=== PATIENT | female | born 1945 | race Caucasian/White ===

== ENCOUNTER 2017-08-07 14:02 | Outpatient (CLI) | payer MEDICARE | END 2017-08-07 14:03 | disposition home or self-care (01) | LOC: BICMAMMO 14:02 | PROVIDERS: ATTEND Internal Medicine | DX: Z12.31 Encounter for screening mammogram for malignant neoplasm of breast (principal) | CPT/HCPCS: 77063; 77067 ==

== ENCOUNTER 2018-02-12 11:02 | Emergency (ER) | payer MEDICARE ==
--- NOTE | 2018-02-12 12:14 | RAD ---
2 VIEWS CHEST: Date: 02/12/18 COMPARISON: 01/10/16. HISTORY: Intermittent chest pain. FINDINGS: No pneumothorax, pleural fluid, focal consolidation, or alveolar edema. Heart and mediastinal contour s unremarkable. IMPRESSION: No acute findings. POS: [facility]
[2018-02-12 13:04] LABS: #Eosinphils 0.1 thou/uL (0.0-0.7); #Lymphocytes 0.9 thou/uL (1.20-3.40); #Monocytes 0.5 thou/uL (0.11-0.59); %Basophils 0.3 % (0.0-1.0); %Eosinophils 0.6 % (0.0-10.0); %Monocytes 5.3 % (0.0-10.0); %Neutrophils 82.9 % (42.0-75.0); Hemoglobin 16.6 g/dL (12.0-16.0); Mean Corpuscular HGB CONC 34.1 g/dL (32.0-36.0); Mean Corpuscular Hemoglobin 30.3 pg (27.0-31.0); Mean Corpuscular Volume 89.1 fL (78.0-98.0); Mean Platelet Volume 6.5 fL (7.4-10.4); Platelet Count 202 thou/uL (130-400); RBC Distribution Width 12.7 % (11.5-14.5); Red Blood Cell (RBC) Count 5.48 mill/uL (4.20-5.40); White Blood Cell (WBC) Count 8.5 thou/uL (4.8-10.8)
[2018-02-12 13:20] LABS: ALT (SGPT) 18 U/L (8-55); AST (SGOT) 21 U/L (5-34); Albumin 4.6 g/dL (3.4-4.8); Alkaline Phosphatase 76 U/L (40-150); Anion Gap 9 mmol/L (10-20); BUN (Urea Nitrogen) 17 mg/dL (9.8-20.1); Bilirubin, Total 0.6 mg/dL (0.2-1.2); CK (CPK) 200 U/L (29-168); Calc. Creatinine Clearance 0 mL/min (70-130); Calcium 10.1 mg/dL (7.8-10.44); Carbon Dioxide 29 mmol/L (23-31); Chloride 105 mmol/L (98-107); Estimated GFR-MDRD 58; Globulin 2.7 g/dL (2.4-3.5); Glucose 119 mg/dL (83-110); Potassium 4.6 mmol/L (3.5-5.1); Protein, Total 7.3 g/dL (6.0-8.3); Sodium 138 mmol/L (136-145)
[2018-02-12 13:22] LABS: CKMB 5.5 ng/mL (0-6.6)
--- NOTE | 2018-02-14 13:54 | EKG ---
Test Reason : Blood Pressure : / mmHG Vent. Rate : 078 BPM Atrial Rate : 078 BPM P-R Int : 160 ms QRS Dur : 086 ms QT Int : 338 ms P-R-T Axes : 037 020 044 degrees QTc Int : 385 ms Normal sinus rhythm Normal ECG Confirmed by MARTIN TROTTER ([id number]), legal editor DEANNA BERMUDEZ ([id number] on 02/14/2018 1:54:21 PM Referred By: Confirmed By:MARTIN TROTTER
== END 2018-02-12 16:46 | disposition home or self-care (01) ==
LOC: ERS 11:02
DX: R07.89 Other chest pain (principal); E03.9 Hypothyroidism, unspecified; I10 Essential (primary) hypertension; Z79.82 Long term (current) use of aspirin; Z79.899 Other long term (current) drug therapy
CPT/HCPCS: 36415; 71046; 80053; 82550; 82553; 84484; 85025; 93005

== ENCOUNTER 2018-02-18 10:53 | Outpatient (CLI) | payer MEDICARE ==
--- NOTE | 2018-02-18 11:53 | RAD ---
CHEST TWO VIEWS: History: Left chest pain. Comparison: 02-12-18 FINDINGS: The cardiac silhouette and pulmonary vasculature are unremarkable. Mediastinum is midline. No conflue nt airspace consolidation, pneumothorax, or pleural fluid. IMPRESSION: No active cardiopulmonary abnormalities are demonstrated. POS: [facility]
== END 2018-02-18 10:54 | disposition home or self-care (01) ==
LOC: BICRAD 10:53
PROVIDERS: ATTEND Internal Medicine
DX: R07.89 Other chest pain (principal)
CPT/HCPCS: 71046

== ENCOUNTER 2018-07-07 14:05 | Outpatient (CLI) | payer MEDICARE ==
--- NOTE | 2018-07-07 14:26 | RAD ---
Exam: Cervical spine 3 views: HISTORY: Cervalgia, unspecified osteoarthritis. FINDINGS: Multilevel disc osteophytosis and facet arthrosis. Very mild anterolisthesis of C4 on C5. The tip of the odontoid and upper C1 are partially obscured on the AP open mouth view. No prevertebral soft tissue swelling. IMPRESSION: Disc osteophytosis and facet arthrosis with very mild anterolisthesis of C4 on C5. No significant acu te process.
== END 2018-07-07 14:06 | disposition home or self-care (01) ==
LOC: BICRAD 14:05
PROVIDERS: ATTEND Internal Medicine
DX: M54.2 Cervicalgia (principal); M19.90 Unspecified osteoarthritis, unspecified site; M47.812 Spondylosis without myelopathy or radiculopathy, cervical region; M43.12 Spondylolisthesis, cervical region
CPT/HCPCS: 72040

== ENCOUNTER 2018-07-22 09:41 | Outpatient (CLI) | payer MEDICARE ==
--- NOTE | 2018-07-22 10:47 | MRI ---
Exam: MRI CERVICAL SPINE WITHOUT CONTRAST: HISTORY: Neck pain. Pain behind ears.. COMPARISON: 09/14/2013 FINDINGS: Appropriate T1 marrow signal intensity of the cervical vertebra. Cervical spine vertebral body heigh t is maintained. No fracture. No significant STIR hyperintensity to suggest vertebral body edema or ligamentous injury. Visualized brain parenchyma, cervicomedullary junction, cervical cord and the upper thoracic cord hav e a normal size and signal intensity C2-C3: No significant central canal stenosis or neural foraminal narrowing C3-C4: No significant central canal stenosis. Stable left-sided facet hypertrophy with resultant mode rate left foraminal narrowing. Right neural foramen is patent. C4-C5: Broad-based discussed by complex abuts the thecal sac. No significant central canal stenosis. Neural foramina are patent C5-C6: No obvious discussed by complex with a right paracentral component. Mild central canal stenosi s. Mild bilateral neural foraminal narrowing due to uncovertebral hypertrophy. C6-C7: No significant central canal stenosis. Neural foramina are patent. C7-T1: No significant central canal stenosis. Neural foramina are patent IMPRESSION: Stable degenerative changes of the cervical spine. Greatest degree of central canal stenosis at C5-C6 where there is persistent mass effect upon the right aspect of the thecal sac and right hemicord. Transcribed Date/Time: 07/22/2018 11:11 AM
== END 2018-07-22 09:42 | disposition home or self-care (01) ==
LOC: BICMRI 09:41
PROVIDERS: ATTEND Internal Medicine
DX: M47.26 Other spondylosis with radiculopathy, lumbar region (principal); M54.2 Cervicalgia; M48.061 Spinal stenosis, lumbar region without neurogenic claudication; G95.9 Disease of spinal cord, unspecified
CPT/HCPCS: 72141

== ENCOUNTER 2018-08-13 12:20 | Outpatient (CLI) | payer MEDICARE ==
--- NOTE | 2018-08-13 13:27 | RAD ---
RIGHT HIP 2 VIEWS: Date: 08/13/18 HISTORY: Right hip pain. FINDINGS/IMPRESSION: Right hip joint arthrosis and degenerative change without fracture or dislocation. POS: [facility]
--- NOTE | 2018-08-13 14:53 | MMO ---
Bilateral MAMMO Bilat Screen [facility]. CLINICAL HISTORY: Patient is 73 years old and is seen for screening. The patient has no family history of breast cancer. The patient has no personal history of cancer. VIEWS: The views performed were: bilateral craniocaudal with tomosynthesis and bilateral mediolateral oblique with tomosynthesis. FILMS COMPARED: The present examination has been compared to prior imaging studies performed at [facility] on 07/29/2014, 07/31/2015, 08/01/2016 and 08/07/2017. MAMMOGRAM FINDINGS: There are scattered fibroglandular densities. There are stable benign appearing calcifications seen in both breasts. There are no suspicious masses, suspicious calcifications, or new areas of architectural distortion. IMPRESSION: THERE IS NO MAMMOGRAPHIC EVIDENCE OF MALIGNANCY. A ROUTINE FOLLOW-UP MAMMOGRAM IN 1 YEAR IS RECOMMENDED. THE RESULTS OF THIS EXAM WERE SENT TO THE PATIENT. ACR BI-RADS Category 2 - Benign finding MAMMOGRAPHY NOTE: 1. A negative mammogram report should not delay a biopsy if a dominant of clinically suspicious mass is present. 2. Approximately 10% to 15% of breast cancers are not detected by mammography. 3. Adenosis and dense breasts may obscure an underlying neoplasm.
== END 2018-08-13 12:21 | disposition home or self-care (01) ==
LOC: BICMAMMO 12:20
PROVIDERS: ATTEND Internal Medicine
DX: Z12.31 Encounter for screening mammogram for malignant neoplasm of breast (principal); M25.551 Pain in right hip
CPT/HCPCS: 77063; 77067

== ENCOUNTER 2018-09-21 16:07 | Outpatient (CLI) | payer MEDICARE ==
--- NOTE | 2018-09-21 16:23 | RAD ---
Cervical spine lateral views flexion and extension HISTORY: Neck pain. COMPARISON: 07/07/2018. FINDINGS: At the C4-5 level, there is 0.3 cm anterior listhesis upon flexion that reduces to 0.1 cm u manuela extension. At the C5-6 level, there is moderate disc space narrowing. 0.2 cm retrolisthesis develops upon extens ion. Cervicothoracic junction is intact. Moderate osteophytosis, most pronounced at the C5-6 level. No acute fracture or dislocation. IMPRESSION: Osseous degenerative changes of the cervical spine, including mild translational motion a s detailed above.
== END 2018-09-21 16:08 | disposition home or self-care (01) ==
LOC: TBSIIMAG 16:07
PROVIDERS: ATTEND Neurological Surgery
DX: M54.2 Cervicalgia (principal); M47.812 Spondylosis without myelopathy or radiculopathy, cervical region; M25.78 Osteophyte, vertebrae
CPT/HCPCS: 72040

== ENCOUNTER 2018-09-29 14:06 | Outpatient (CLI) | payer MEDICARE ==
--- NOTE | 2018-09-29 15:57 | MRI ---
MRI Brain W WO Con History: Spasm of hand Comparison: None. Findings: On the diffusion weighted imaging sequence there are no abnormal foci of diffusion restrict ion. This is confirmed on the ADC maps. On the susceptibility weighted sequence no abnormal foci of hemorrhage. No abnormal leptomeningeal or pachymeningeal enhancement. No intra-axial or extra-axial enhancing mas s. Ventricular size and extra-axial CSF spaces are normal. No significant microvascular ischemic changes . Normal volume of brain parenchyma. Dural venous sinuses are patent. Impression: Normal MRI of the brain.
== END 2018-09-29 14:07 | disposition home or self-care (01) ==
LOC: SCSMRI 14:06
PROVIDERS: ATTEND Neurological Surgery
DX: R25.2 Cramp and spasm (principal)
CPT/HCPCS: 70553; 82565

== ENCOUNTER 2019-08-18 13:11 | Outpatient (CLI) | payer MEDICARE ==
--- NOTE | 2019-08-18 14:11 | MMO ---
Bilateral MAMMO Bilat Screen [facility]. CLINICAL HISTORY: Patient is 74 years old and is seen for screening. The patient has no family history of breast cancer. The patient has no personal history of cancer. VIEWS: The views performed were: bilateral craniocaudal with tomosynthesis and bilateral mediolateral oblique with tomosynthesis. FILMS COMPARED: The present examination has been compared to prior imaging studies performed at [facility] on 07/31/2015, 08/01/2016, 08/07/2017 and 08/13/2018. This study has been interpreted with the assistance of computer-aided detection. MAMMOGRAM FINDINGS: There are scattered fibroglandular densities. There are vascular calcifications seen in the left breast. There are no suspicious masses, suspicious calcifications, or new areas of architectural distortion. IMPRESSION: A ROUTINE FOLLOW-UP MAMMOGRAM IN 1 YEAR IS RECOMMENDED. THE RESULTS OF THIS EXAM WERE SENT TO THE PATIENT. ACR BI-RADS Category 2 - Benign finding MAMMOGRAPHY NOTE: 1. A negative mammogram report should not delay a biopsy if a dominant of clinically suspicious mass is present. 2. Approximately 10% to 15% of breast cancers are not detected by mammography. 3. Adenosis and dense breasts may obscure an underlying neoplasm. Reported by: LOUIS CHUNG MD Electonically Signed: [id number]
== END 2019-08-18 13:12 | disposition home or self-care (01) ==
LOC: BICMAMMO 13:11
PROVIDERS: ATTEND Internal Medicine
DX: Z12.31 Encounter for screening mammogram for malignant neoplasm of breast (principal)
CPT/HCPCS: 77063; 77067

== ENCOUNTER 2020-01-06 08:53 | Emergency (ER) | payer MEDICARE ==
[2020-01-06] MEDS ORDERED: Proparacaine 0.5% Opth 15 ML BOT ONE (09:22)
== END 2020-01-06 10:30 | disposition home or self-care (01) ==
LOC: ERS 08:53
DX: H11.31 Conjunctival hemorrhage, right eye (principal); E03.9 Hypothyroidism, unspecified; I10 Essential (primary) hypertension; K21.9 Gastro-esophageal reflux disease without esophagitis; Z79.899 Other long term (current) drug therapy; Z79.82 Long term (current) use of aspirin
CPT/HCPCS: 99283

== ENCOUNTER 2020-03-13 07:50 | Outpatient (CLI) | payer MEDICARE ==
--- NOTE | 2020-03-13 09:39 | RAD ---
PA AND LATERAL CHEST: HISTORY: Dyspnea. COMPARISON: 02/18/2018 study. FINDINGS: Heart size is upper limits. The aorta is tortuous. The lungs appear clear of any focal infiltrative process. IMPRESSION: No active intrathoracic disease. Stable overall appearance to the chest. POS: [facility]
== END 2020-03-13 07:51 | disposition home or self-care (01) ==
LOC: BICRAD 07:50
PROVIDERS: ATTEND Internal Medicine Critical Care Medicine
DX: R06.00 Dyspnea, unspecified (principal)
CPT/HCPCS: 71046

== ENCOUNTER 2020-08-18 13:00 | Outpatient (CLI) | payer MEDICARE | END 2020-08-18 13:01 | disposition home or self-care (01) | LOC: BICMAMMO 13:00 | PROVIDERS: ATTEND Internal Medicine | DX: Z12.31 Encounter for screening mammogram for malignant neoplasm of breast (principal) | CPT/HCPCS: 77063; 77067 ==

== ENCOUNTER 2021-08-22 12:30 | Outpatient (CLI) | payer MEDICARE | END 2021-08-22 12:31 | disposition home or self-care (01) | LOC: BICMAMMO 12:30 | PROVIDERS: ATTEND Internal Medicine | DX: Z12.31 Encounter for screening mammogram for malignant neoplasm of breast (principal) | CPT/HCPCS: 77063; 77067 ==

== ENCOUNTER 2022-08-23 12:36 | Outpatient (CLI) | payer MEDICARE | END 2022-08-23 12:37 | disposition home or self-care (01) | LOC: BICMAMMO 12:36 | PROVIDERS: ATTEND Internal Medicine | DX: Z12.31 Encounter for screening mammogram for malignant neoplasm of breast (principal) | CPT/HCPCS: 77063; 77067 ==

== ENCOUNTER 2022-10-01 07:57 | Outpatient (CLI) | payer MEDICARE ==
[2022-10-01] MEDS ORDERED: Iopamidol 370 76% 100 ML VIAL ONE (09:26)
== END 2022-10-01 07:58 | disposition home or self-care (01) ==
LOC: BICCT 07:57
PROVIDERS: ATTEND Family Medicine
DX: R41.3 Other amnesia (principal)
CPT/HCPCS: 70470; Q9967

== ENCOUNTER 2022-12-16 10:53 | Outpatient (CLI) | payer MEDICARE ==
[2022-12-16] MEDS ORDERED: Magnevist 469MG/ML 20 ML VIAL ONE (14:50)
== END 2022-12-16 10:54 | disposition home or self-care (01) ==
LOC: MRI 10:53
PROVIDERS: ATTEND Psychiatry & Neurology Neurology
DX: R41.3 Other amnesia (principal)
CPT/HCPCS: 70553

== ENCOUNTER 2023-02-06 17:00 | Outpatient (CLI) | payer MEDICARE | END 2023-02-06 17:01 | disposition home or self-care (01) | LOC: SLEEPLAB 17:00 | PROVIDERS: ATTEND Family Medicine | DX: G47.33 Obstructive sleep apnea (adult) (pediatric) (principal); R53.83 Other fatigue; R06.83 Snoring; I10 Essential (primary) hypertension; R51.9 Headache, unspecified; G47.10 Hypersomnia, unspecified; G47.00 Insomnia, unspecified | CPT/HCPCS: 95810 ==

== ENCOUNTER 2023-04-06 16:00 | Outpatient (CLI) | payer MEDICARE | END 2023-04-06 16:01 | disposition home or self-care (01) | LOC: SLEEPLAB 16:00 | PROVIDERS: ATTEND Family Medicine | DX: G47.33 Obstructive sleep apnea (adult) (pediatric) (principal) | CPT/HCPCS: 95811 ==

== ENCOUNTER 2023-04-15 08:40 | Outpatient (CLI) | payer MEDICARE | END 2023-04-15 08:41 | disposition home or self-care (01) | LOC: BICRAD 08:40 | PROVIDERS: ATTEND Family Medicine | DX: M54.6 Pain in thoracic spine (principal); M41.9 Scoliosis, unspecified | CPT/HCPCS: 72070 ==

== ENCOUNTER 2023-05-29 07:41 | Emergency (ER) | payer MEDICARE | END 2023-05-29 08:27 | disposition home or self-care (01) | LOC: ERS 07:41 | DX: R04.0 Epistaxis (principal); I10 Essential (primary) hypertension; K21.9 Gastro-esophageal reflux disease without esophagitis; Z79.899 Other long term (current) drug therapy | CPT/HCPCS: 99283 ==

== ENCOUNTER 2023-09-09 13:01 | Outpatient (CLI) | payer MEDICARE | END 2023-09-09 13:02 | disposition home or self-care (01) | LOC: DTY/OP 13:01 | PROVIDERS: ATTEND Family Medicine | DX: E11.9 Type 2 diabetes mellitus without complications (principal) | CPT/HCPCS: 97802 ==

== ENCOUNTER 2023-10-01 09:32 | Outpatient (CLI) | payer MEDICARE | END 2023-10-01 09:33 | disposition home or self-care (01) | LOC: NM 09:32 | PROVIDERS: ATTEND Family Medicine | DX: R41.3 Other amnesia (principal); R94.8 Abnormal results of function studies of other organs and systems | CPT/HCPCS: 78803; A9584 ×2 ==